=== PATIENT | female | born 1990 | race African-American/Black ===

== ENCOUNTER 2018-03-21 01:00 | Emergency (ER) | payer MEDICAID ==
[~2018-03-21] VITALS: Ht 157.5 cm; Wt 64.0 kg
[~2018-03-21 01:00] MED LIST: ALBUTEROL; PHEN100C4 PO; [UNRECOGNIZED DRUG - OTHER]
[2018-03-21] MEDS ORDERED: KETOROLAC 60MG/2ML VIAL IM ONE (01:45)
[2018-03-21 03:30] VITALS: BP 104/62
== END 2018-03-21 05:39 | disposition home or self-care (01) ==
LOC: ER 01:00
DX: R07.89 Other chest pain (principal); J45.909 Unspecified asthma, uncomplicated; R56.9 Unspecified convulsions; F17.210 Nicotine dependence, cigarettes, uncomplicated; Z88.6 Allergy status to analgesic agent; Z88.1 Allergy status to other antibiotic agents; Z91.013 Allergy to seafood
CPT/HCPCS: 71045; 81025; 93005; 96372; 99284; J1885

== ENCOUNTER 2020-11-08 00:04 | Emergency (ER) | payer MEDICAID ==
[~2020-11-08] VITALS: Ht 157.5 cm; Wt 64.1 kg
[2020-11-08 01:29] VITALS: BP 136/67
[2020-11-08] MEDS ORDERED: KETOROLAC 30MG/ML VIAL IM ONE (01:30)
[2020-11-08] MEDS ORDERED: IBUP-2029 MT (03:13)
== END 2020-11-08 04:00 | disposition home or self-care (01) ==
LOC: ER 00:04
DX: S80.11XA Contusion of right lower leg, initial encounter (principal); G40.909 Epilepsy, unspecified, not intractable, without status epilepticus; J45.909 Unspecified asthma, uncomplicated; Z98.890 Other specified postprocedural states; Z88.6 Allergy status to analgesic agent; Z88.0 Allergy status to penicillin; Z91.013 Allergy to seafood; V04.90XA Pedestrian on foot injured in collision with heavy transport vehicle or bus, unspecified whether traffic or nontraffic accident, initial encounter; Y93.89 Activity, other specified; Y92.488 Other paved roadways as the place of occurrence of the external cause
CPT/HCPCS: 73562; 73610; 73630; 81025; 96372; 99284; J1885

== ENCOUNTER 2021-04-17 12:48 | Emergency (ER) | payer MEDICAID ==
[~2021-04-17] VITALS: Ht 167.6 cm; Wt 63.0 kg
[~2021-04-17 12:48] MED LIST changes: +IBUP-2029 MT
[2021-04-17] MEDS ORDERED: MORPHINE SULFATE 4 MG/ML CPJ (NOT FOR IM USE) IV ONE (16:00)
[2021-04-17 16:12] LABS: BASOPHILS % 0.4 % (0.0-2.0); EOSINOPHILS % 1.4 % (0.0-5.0); HEMATOCRIT. 32.6 % (36.0-48.0); HEMOGLOBIN. 10.6 g/dL (12.0-16.0); LYMPHOCYTES % 28.8 % (20.0-50.0); MEAN CORPUSCULAR HEMOGLOBIN 25.6 pg (28.0-32.0); MEAN CORPUSCULAR VOLUME 78.5 fL (81.0-99.0); MEAN PLATELET VOLUME 9.3 fl (7.4-10.4); MONOCYTES % 7.4 % (2.0-8.0); PLATELET 234 x1000/uL (130-400); RED BLOOD CELL COUNT 4.16 mill/uL (4.2-5.4); RED CELL DISTRIBUTION WIDTH 16.8 % (11.6-14.6)
[2021-04-17 16:21] LABS: CHLORIDE 109 mEq/L (98-107); HCG SCREEN NEGATIVE
[2021-04-17 16:23] LABS: PROTHROMBIN TIME 10.9 sec (9.6-11.0)
[2021-04-17] MEDS ORDERED: KETOROLAC 15MG/ML VIAL IV ONE (16:30)
[2021-04-17 17:14] LABS: CLARITY URINE CLEAR (CLEAR); COLOR URINE YELLOW (YELLOW); KETONES URINE NEGATIVE (NEGATIVE); LEUKOCYTE ESTERASE URINE TRACE (NEGATIVE); NITRITE URINE NEGATIVE (NEGATIVE); OCCULT BLOOD URINE NEGATIVE (NEGATIVE); PROTEIN URINE NEGATIVE (NEGATIVE); SPECIFIC GRAVITY URINE 1.022 (1.005-1.030)
[2021-04-17] MEDS ORDERED: METR-167 MT (18:24)
[2021-04-17] MEDS ORDERED: DOXY-326 MT (18:24)
[2021-04-17] MEDS ORDERED: CEFTRIAXONE SODIUM 500 MG/VIAL IM NR (18:30)
[2021-04-17] MEDS ORDERED: HYDR-4001 MT (18:42)
[2021-04-17] MEDS ORDERED: HYDROCODONE/ACETAMINOPHEN 5/325MG TABLET PO ONE (18:45)
[2021-04-17 19:57] VITALS: BP 112/60
[2021-04-20 08:11] LABS: NEISSERIA GONORRHOEAE NAA Negative (Negative)
== END 2021-04-17 19:59 | disposition home or self-care (01) ==
LOC: ER 12:59
DX: N76.0 Acute vaginitis (principal); N73.9 Female pelvic inflammatory disease, unspecified; J45.909 Unspecified asthma, uncomplicated; Z98.890 Other specified postprocedural states; Z79.899 Other long term (current) drug therapy; Z91.013 Allergy to seafood; Z88.0 Allergy status to penicillin
CPT/HCPCS: 36415; 76830; 76856; 80053; 81003; 81025; 83690; 84484; 84703; 85025; 85610; 87210; 87491; 87591; 96372; 96374; 96375; 99285; J0696; J1885; J2270

== ENCOUNTER 2021-10-03 19:04 | Emergency (ER) | payer MEDICAID ==
[~2021-10-03] VITALS: Ht 160 cm; Wt 61.0 kg
[~2021-10-03 19:04] MED LIST changes: +DOXY-326 MT; +HYDR-4001 MT; +METR-167 MT
[2021-10-03] MEDS ORDERED: KETOROLAC 30MG/ML VIAL IV STA (21:17)
[2021-10-03 21:29] VITALS: BP 127/72
[2021-10-03] MEDS ORDERED: SODIUM CHLORIDE 0.9% 1,000 ML IV ONE (21:30)
[2021-10-03 21:33] LABS: BASOPHILS % 0.5 % (0.0-2.0); EOSINOPHILS % 2.2 % (0.0-5.0); HEMATOCRIT. 33.5 % (36.0-48.0); HEMOGLOBIN. 10.8 g/dL (12.0-16.0); LYMPHOCYTES % 32.9 % (20.0-50.0); MEAN CORPUSCULAR HEMOGLOBIN 25.1 pg (28.0-32.0); MEAN CORPUSCULAR VOLUME 78.2 fL (81.0-99.0); MEAN PLATELET VOLUME 9.2 fl (7.4-10.4); MONOCYTES % 8.3 % (2.0-8.0); NEUTROPHILS % 56.1 % (40.0-76.0); PLATELET 259 x1000/uL (130-400); RED BLOOD CELL COUNT 4.29 mill/uL (4.2-5.4); RED CELL DISTRIBUTION WIDTH 17.3 % (11.6-14.6)
[2021-10-03 21:39] LABS: CHLORIDE 105 mEq/L (98-107)
[2021-10-03 21:58] LABS: HCG SCREEN NEGATIVE
[2021-10-03 22:49] LABS: CLARITY URINE TURBID (CLEAR); COLOR URINE ORANGE (YELLOW); KETONES URINE 2+ (NEGATIVE); LEUKOCYTE ESTERASE URINE 3+ (NEGATIVE); NITRITE URINE POSITIVE (NEGATIVE); OCCULT BLOOD URINE 3+ (NEGATIVE); PH URINE 5.5 (4.5-8.0); PROTEIN URINE 2+ (NEGATIVE); SPECIFIC GRAVITY URINE 1.023 (1.005-1.030)
== END 2021-10-03 22:53 | disposition left against medical advice (07) ==
LOC: ER 19:04
DX: N39.0 Urinary tract infection, site not specified (principal); G40.909 Epilepsy, unspecified, not intractable, without status epilepticus; J45.909 Unspecified asthma, uncomplicated; Z98.890 Other specified postprocedural states; Z91.013 Allergy to seafood; Z88.0 Allergy status to penicillin
CPT/HCPCS: 36415; 74176; 80053; 81003; 81025; 83690; 84703; 85025; 87077; 87086; 87186; 96361; 96374; 99284; J1885; J7030

== ENCOUNTER 2021-12-18 14:10 | Emergency (ER) | payer MEDICAID ==
[~2021-12-18] VITALS: Ht 165.1 cm; Wt 65.0 kg
[2021-12-18 15:33] LABS: BASOPHILS % 0.5 % (0.0-2.0); EOSINOPHILS % 1.8 % (0.0-5.0); HEMATOCRIT. 32.6 % (36.0-48.0); HEMOGLOBIN. 10.5 g/dL (12.0-16.0); LYMPHOCYTES % 30.3 % (20.0-50.0); MEAN CORPUSCULAR HEMOGLOBIN 25.1 pg (28.0-32.0); MEAN PLATELET VOLUME 9.2 fl (7.4-10.4); MONOCYTES % 9.8 % (2.0-8.0); NEUTROPHILS % 57.6 % (40.0-76.0); PLATELET 285 x1000/uL (130-400); RED BLOOD CELL COUNT 4.18 mill/uL (4.2-5.4); RED CELL DISTRIBUTION WIDTH 16.7 % (11.6-14.6)
[2021-12-18 15:41] LABS: CHLORIDE 109 mEq/L (98-107)
[2021-12-18 15:50] LABS: HCG SCREEN NEGATIVE
[2021-12-18 15:57] LABS: B-HCG QUANTITATIVE < 1 mIU/mL (<3)
[2021-12-18] MEDS ORDERED: MORPHINE SULFATE 4 MG/ML CPJ (NOT FOR IM USE) IV ONE (16:45)
[2021-12-18] MEDS ORDERED: DIPHENHYDRAMINE 50MG/ML VIAL IV ONE (17:30)
[2021-12-18 18:23] LABS: CLARITY URINE CLEAR (CLEAR); COLOR URINE YELLOW (YELLOW); KETONES URINE TRACE (NEGATIVE); LEUKOCYTE ESTERASE URINE 2+ (NEGATIVE); NITRITE URINE NEGATIVE (NEGATIVE); OCCULT BLOOD URINE NEGATIVE (NEGATIVE); PH URINE 6.5 (4.5-8.0); PROTEIN URINE NEGATIVE (NEGATIVE); SPECIFIC GRAVITY URINE 1.025 (1.005-1.030)
[2021-12-18] MEDS ORDERED: CEFTRIAXONE 1 G PREMIX 50 ML IV ONE (19:15)
[2021-12-18] MEDS ORDERED: MORPHINE SULFATE 2 MG/ML CPJ (NOT FOR IM USE) IV ONE (19:15)
[2021-12-18] MEDS ORDERED: KETOROLAC 30MG/ML VIAL IV ONE (19:15)
[2021-12-18] MEDS ORDERED: IBUP-2028 MT ×2 (19:16)
[2021-12-18] MEDS ORDERED: TOPUD PO (19:16)
[2021-12-18] MEDS ORDERED: CEFP200T13 MT ×2 (19:16)
[2021-12-18] MEDS ORDERED: NITR-87 MT (19:38)
[2021-12-18 19:42] VITALS: BP 142/86
[2021-12-18] MEDS ORDERED: NITROFURANTOIN 100MG M/M CAPSULE PO ONE (19:45)
== END 2021-12-18 20:16 | disposition home or self-care (01) ==
LOC: ER 15:02
DX: N39.0 Urinary tract infection, site not specified (principal); J45.909 Unspecified asthma, uncomplicated; Z87.891 Personal history of nicotine dependence; F12.10 Cannabis abuse, uncomplicated; Z79.899 Other long term (current) drug therapy; Z88.0 Allergy status to penicillin
CPT/HCPCS: 36415; 74176; 80053; 81003; 84702; 84703; 85025; 86850; 86900; 86901; 96374; 96375; 96376; 99284; J0696; J1200; J1885; J2270

== ENCOUNTER 2022-05-20 03:50 | Emergency (ER) | payer MEDICAID ==
[~2022-05-20] VITALS: Ht 157.5 cm; Wt 64.1 kg
[~2022-05-20 03:50] MED LIST changes: +NITR-87 MT; +TOPUD PO
[2022-05-20] MEDS ORDERED: ONDANSETRON HCL 4MG/2ML INJ IV STA (04:38)
[2022-05-20] MEDS ORDERED: MORPHINE SULFATE 4 MG/ML CPJ (NOT FOR IM USE) IV STA (04:38)
[2022-05-20] MEDS ORDERED: ASPIRIN 81MG TABLET PO ONE (04:45)
[2022-05-20 05:14] LABS: BASOPHILS % 0.6 % (0.0-2.0); EOSINOPHILS % 2.4 % (0.0-5.0); HEMATOCRIT. 32.6 % (36.0-48.0); HEMOGLOBIN. 10.7 g/dL (12.0-16.0); LYMPHOCYTES % 46.3 % (20.0-50.0); MEAN CORPUSCULAR HEMOGLOBIN 25.2 pg (28.0-32.0); MEAN CORPUSCULAR VOLUME 77.1 fL (81.0-99.0); MEAN PLATELET VOLUME 9.1 fl (7.4-10.4); MONOCYTES % 10.4 % (2.0-8.0); NEUTROPHILS % 40.3 % (40.0-76.0); PLATELET 211 x1000/uL (130-400); RED BLOOD CELL COUNT 4.23 mill/uL (4.2-5.4); RED CELL DISTRIBUTION WIDTH 17.7 % (11.6-14.6)
[2022-05-20 05:21] LABS: CHLORIDE 107 mEq/L (98-107)
[2022-05-20 05:48] LABS: HCG SCREEN NEGATIVE
[2022-05-20] MEDS ORDERED: MORPHINE SULFATE 4 MG/ML CPJ (NOT FOR IM USE) IV NR (09:45)
[2022-05-20 10:00] VITALS: BP 110/50
== END 2022-05-20 10:55 | disposition home or self-care (01) ==
LOC: ER 03:50
DX: R07.89 Other chest pain (principal); R56.9 Unspecified convulsions; Z88.3 Allergy status to other anti-infective agents; Z88.6 Allergy status to analgesic agent; Z91.013 Allergy to seafood; Z98.890 Other specified postprocedural states
CPT/HCPCS: 36415; 71045; 80053; 81025; 83880; 84484; 84703; 85025; 85379; 93005; 96374; 99285; J2270; Z7610

== ENCOUNTER 2022-06-10 21:51 | Emergency (ER) | payer MEDICAID | END 2022-06-10 22:14 | disposition left against medical advice (07) | LOC: ER 21:51 | DX: Z53.21 Procedure and treatment not carried out due to patient leaving prior to being seen by health care provider (principal); Z88.1 Allergy status to other antibiotic agents; Z88.3 Allergy status to other anti-infective agents; Z88.6 Allergy status to analgesic agent; Z88.8 Allergy status to other drugs, medicaments and biological substances; Z91.048 Other nonmedicinal substance allergy status ==

== ENCOUNTER 2022-06-20 09:44 | Emergency (ER) | payer MEDICAID ==
[~2022-06-20] VITALS: Ht 167.6 cm; Wt 75.0 kg
[2022-06-20 09:50] VITALS: BP 116/59
== END 2022-06-20 13:12 | disposition left against medical advice (07) ==
LOC: ER 09:44
DX: Z53.21 Procedure and treatment not carried out due to patient leaving prior to being seen by health care provider (principal); I49.9 Cardiac arrhythmia, unspecified
CPT/HCPCS: 93005

== ENCOUNTER 2022-08-13 17:45 | Emergency (ER) | payer MEDICAID ==
[~2022-08-13] VITALS: Ht 160 cm; Wt 59.0 kg
[2022-08-13 17:47] VITALS: BP 117/69
[2022-08-13] MEDS ORDERED: MORPHINE SULFATE 4 MG/ML CPJ (NOT FOR IM USE) IV ONE (19:30)
[2022-08-13 19:46] LABS: CLARITY URINE CLEAR (CLEAR); COLOR URINE YELLOW (YELLOW); KETONES URINE NEGATIVE (NEGATIVE); LEUKOCYTE ESTERASE URINE 1+ (NEGATIVE); NITRITE URINE NEGATIVE (NEGATIVE); OCCULT BLOOD URINE NEGATIVE (NEGATIVE); PH URINE 6.5 (4.5-8.0); PROTEIN URINE NEGATIVE (NEGATIVE); SPECIFIC GRAVITY URINE 1.023 (1.005-1.030)
[2022-08-13 21:41] LABS: BASOPHILS % 0.5 % (0.0-2.0); EOSINOPHILS % 1.8 % (0.0-5.0); HEMATOCRIT. 32.3 % (36.0-48.0); HEMOGLOBIN. 10.4 g/dL (12.0-16.0); LYMPHOCYTES % 31.2 % (20.0-50.0); MEAN CORPUSCULAR HEMOGLOBIN 25.2 pg (28.0-32.0); MEAN CORPUSCULAR VOLUME 78.1 fL (81.0-99.0); MEAN PLATELET VOLUME 9.3 fl (7.4-10.4); MONOCYTES % 9.7 % (2.0-8.0); NEUTROPHILS % 56.8 % (40.0-76.0); PLATELET 220 x1000/uL (130-400); RED BLOOD CELL COUNT 4.13 mill/uL (4.2-5.4); RED CELL DISTRIBUTION WIDTH 18.4 % (11.6-14.6)
[2022-08-13 22:04] LABS: CHLORIDE 109 mEq/L (98-107)
[2022-08-13] MEDS ORDERED: ONDANSETRON HCL 4MG/2ML INJ IV ONE (22:15)
[2022-08-13] MEDS ORDERED: CIPR750T4 MT (22:24)
[2022-08-13] MEDS ORDERED: MUPI15CR11 TP (22:24)
== END 2022-08-13 22:48 | disposition home or self-care (01) ==
LOC: ER 17:45
DX: H61.001 Unspecified perichondritis of right external ear (principal); J45.909 Unspecified asthma, uncomplicated; R00.1 Bradycardia, unspecified; Z98.890 Other specified postprocedural states; F12.10 Cannabis abuse, uncomplicated; Z79.899 Other long term (current) drug therapy; Z88.0 Allergy status to penicillin
CPT/HCPCS: 36415; 74176; 80053; 81003; 81025; 83690; 85025; 93005; 96374; 96375; 99285; J2270; J2405

== ENCOUNTER 2023-02-20 14:10 | Emergency (ER) | payer MEDICAID ==
[~2023-02-20] VITALS: Ht 154.9 cm; Wt 64.0 kg
[~2023-02-20 14:10] MED LIST changes: +CIPR750T4 MT; -DOXY-326 MT; +DOXY-456 MT; +MUPI15CR11 TP
[2023-02-20 14:21] VITALS: TEMP 98.8; O2SAT 100
[2023-02-20 18:45] VITALS: BP 110/60; PULSE 62; RESP 20
[2023-02-20] MEDS ORDERED: IBUPROFEN 400MG TABLET PO ONE (18:45)
[2023-02-20] MEDS ORDERED: FLUORESCEIN SODIUM 1MG/STRIP LEFTEYE ONE (18:45)
[2023-02-20] MEDS ORDERED: TETRACAINE 0.5% OPHTH DROPS 4ML LEFTEYE ONE (18:45)
== END 2023-02-20 20:02 | disposition home or self-care (01) ==
LOC: ER 15:13
DX: H57.12 Ocular pain, left eye (principal); R58 Hemorrhage, not elsewhere classified; J45.909 Unspecified asthma, uncomplicated; R00.1 Bradycardia, unspecified; F12.10 Cannabis abuse, uncomplicated; Z79.899 Other long term (current) drug therapy
CPT/HCPCS: 99281

== ENCOUNTER 2025-05-27 09:58 | Emergency (ER) | payer MEDICAID ==
[~2025-05-27] VITALS: Ht 167.6 cm; Wt 68.0 kg
[~2025-05-27 09:58] MED LIST changes: -DOXY-456 MT; +DOXY-461 MT; +IBUP-1455 MT; -IBUP-2029 MT; +OXYC-100 PO
[2025-05-27 10:01] VITALS: O2SAT 100
[2025-05-27 10:48] LABS: BASOPHILS % 0.5 % (0.0-2.0); EOSINOPHILS % 5.0 % (0.0-5.0); HEMATOCRIT. 29.3 % (36.0-48.0); HEMOGLOBIN. 9.4 g/dL (12.0-16.0); LYMPHOCYTES % 27.1 % (20.0-50.0); MEAN PLATELET VOLUME 8.7 fl (7.4-10.4); MONOCYTES % 9.8 % (2.0-8.0); NEUTROPHILS % 57.6 % (40.0-76.0); PLATELET 293 x1000/uL (130-400); RED BLOOD CELL COUNT 3.73 mill/uL (4.2-5.4); RED CELL DISTRIBUTION WIDTH 18.5 % (11.6-14.6)
[2025-05-27 10:57] LABS: CREATININE 0.8 mg/dL (0.6-1.0); UREA NITROGEN BLOOD < 5 mg/dL (9-23)
[2025-05-27 11:02] LABS: HCG SCREEN POSITIVE
[2025-05-27] MEDS: MORPHINE SULFATE 4 MG/ML INJ (FOR IV/IM USE) IV ONE (11:09)
[2025-05-27] MEDS: ONDANSETRON HCL 4MG/2ML INJ IV ONE (11:09)
[2025-05-27 11:28] LABS: B-HCG QUANTITATIVE 70848 mIU/mL (<6)
[2025-05-27 15:00] VITALS: BP 110/58; PULSE 61; RESP 15; TEMP 36.8; O2SAT 100
== END 2025-05-27 15:00 | disposition home or self-care (01) ==
LOC: ER 09:58
DX: O20.0 Threatened abortion (principal); I51.9 Heart disease, unspecified; J45.909 Unspecified asthma, uncomplicated; Z88.0 Allergy status to penicillin; Z88.1 Allergy status to other antibiotic agents; Z88.6 Allergy status to analgesic agent; Z91.013 Allergy to seafood; Z3A.01 Less than 8 weeks gestation of pregnancy
CPT/HCPCS: 80048; 84703; 84702; 85025; 86850; 86900; 86901; 36415; 76830; 76856; 96374; 96375; 99285; J2405; J2270; Z7610 ×2; A4606

== ENCOUNTER 2025-06-01 19:07 | Emergency (ER) | payer MEDICAID ==
[~2025-06-01] VITALS: Ht 165.1 cm; Wt 64.0 kg
[2025-06-01 19:12] VITALS: O2SAT 99
[2025-06-01] MEDS: ONDANSETRON 4MG ODT PO ONE (20:16)
[2025-06-01] MEDS: ACETAMINOPHEN 325MG TABLET PO ONE (20:16)
[2025-06-01 20:52] LABS: BASOPHILS % 0.7 % (0.0-2.0); EOSINOPHILS % 3.7 % (0.0-5.0); HEMATOCRIT. 28.4 % (36.0-48.0); HEMOGLOBIN. 8.9 g/dL (12.0-16.0); LYMPHOCYTES % 25.8 % (20.0-50.0); MEAN PLATELET VOLUME 8.9 fl (7.4-10.4); MONOCYTES % 8.7 % (2.0-8.0); NEUTROPHILS % 61.1 % (40.0-76.0); PLATELET 258 x1000/uL (130-400); RED BLOOD CELL COUNT 3.62 mill/uL (4.2-5.4); RED CELL DISTRIBUTION WIDTH 17.6 % (11.6-14.6)
[2025-06-01 21:18] LABS: CREATININE 0.7 mg/dL (0.6-1.0); UREA NITROGEN BLOOD < 5 mg/dL (9-23)
[2025-06-01 21:20] LABS: ASPARTATE AMINOTRANSFERASE 10 IU/L (<34); BILIRUBIN DIRECT 0.1 mg/dL (<=3.0); BILIRUBIN TOTAL 0.4 mg/dL (0.1-1.0); PROTEIN TOTAL 6.8 g/dL (6.0-8.3)
[2025-06-01 21:44] LABS: B-HCG QUANTITATIVE 127657 mIU/mL (<6)
[2025-06-01] MEDS: POTASSIUM CHLORIDE 20MEQ/PACKET PO ONE (22:43)
[2025-06-01 22:52] LABS: CLARITY URINE TURBID (CLEAR); COLOR URINE YELLOW (YELLOW); GLUCOSE URINE NEGATIVE (NEGATIVE); KETONES URINE 3+ (NEGATIVE); LEUKOCYTE ESTERASE URINE TRACE (NEGATIVE); NITRITE URINE NEGATIVE (NEGATIVE); OCCULT BLOOD URINE NEGATIVE (NEGATIVE); PH URINE 6.5 (4.5-8.0); PROTEIN URINE 1+ (NEGATIVE); SPECIFIC GRAVITY URINE 1.023 (1.005-1.030); UROBILINOGEN URINE 1.0 E.U./dL (0.2-1.0)
[2025-06-01 23:09] LABS: BACTERIA URINE 3+; SQUAMOUS EPITHELIAL CELL URINE 3+ /lpf (RARE/1+)
[2025-06-01 23:10] LABS: CALCIUM OXALATE CRYSTALS URINE 1+ /lpf; RBC URINE 0-2 /hpf (0-2); WBC URINE 0-2 /hpf (0-2)
[2025-06-01] MEDS ORDERED: NITR-87 MT (23:18)
[2025-06-01] MEDS ORDERED: ONDA-239 PO (23:18)
[2025-06-01] MEDS ORDERED: POLY17PO3 MT (23:18)
[2025-06-01 23:35] VITALS: BP 120/64; PULSE 70; RESP 18; TEMP 36.9; O2SAT 99
== END 2025-06-01 23:39 | disposition home or self-care (01) ==
LOC: ER 19:07
DX: O26.891 Other specified pregnancy related conditions, first trimester (principal); O21.9 Vomiting of pregnancy, unspecified; O23.41 Unspecified infection of urinary tract in pregnancy, first trimester; J45.909 Unspecified asthma, uncomplicated; Z88.0 Allergy status to penicillin; Z88.1 Allergy status to other antibiotic agents; Z88.6 Allergy status to analgesic agent; Z91.013 Allergy to seafood; Z3A.01 Less than 8 weeks gestation of pregnancy
CPT/HCPCS: 80076; 80048; 81003; 84702; 83690; 85025; 86850; 86900; 86901; 36415; 76705; 76801; 99284; Q0162; Z7610

== ENCOUNTER 2025-06-30 02:15 | Inpatient (IN) | payer MEDICAID ==
[~2025-06-30] VITALS: Ht 157.5 cm; Wt 66.7 kg
[~2025-06-30 02:15] MED LIST changes: +ONDA-239 PO; +POLY17PO3 MT
[2025-06-30 02:23] VITALS: O2SAT 100
[2025-06-30 02:51] LABS: BASOPHILS % 0.4 % (0.0-2.0); EOSINOPHILS % 3.8 % (0.0-5.0); HEMATOCRIT. 33.4 % (36.0-48.0); HEMOGLOBIN. 10.5 g/dL (12.0-16.0); LYMPHOCYTES % 33.5 % (20.0-50.0); MEAN PLATELET VOLUME 9.0 fl (7.4-10.4); MONOCYTES % 6.9 % (2.0-8.0); NEUTROPHILS % 55.4 % (40.0-76.0); PLATELET 220 x1000/uL (130-400); RED BLOOD CELL COUNT 4.10 mill/uL (4.2-5.4); RED CELL DISTRIBUTION WIDTH 18.6 % (11.6-14.6)
[2025-06-30 03:01] LABS: CREATININE 0.8 mg/dL (0.6-1.0); UREA NITROGEN BLOOD 6 mg/dL (9-23)
[2025-06-30 03:42] LABS: HCG SCREEN POSITIVE
[2025-06-30] MEDS: IOHEXOL-350 100 ML BOTTLE ONE (05:49)
[2025-06-30] MEDS: TRAMADOL 50MG TABLET PO ONE (06:48)
[2025-06-30 07:56] VITALS: BP 155/83; PULSE 48; RESP 13; O2SAT 99
[2025-06-30 11:08] VITALS: BP 155/83; PULSE 57; RESP 15; TEMP 36.696
[2025-06-30] MEDS ORDERED: NALOXONE HCL 0.4MG/ML VIAL IV PRN (11:30)
[2025-06-30 12:00] VITALS: BP 142/62; PULSE 48; RESP 13; TEMP 37.1; O2SAT 100
[2025-06-30] MEDS: ENOXAPARIN 80MG/0.8ML SYR SUBCUT SCH ×2 (14:49→21:00)
[2025-06-30] MEDS: TRAMADOL 50MG TABLET PO PRN (15:04)
[2025-06-30] MEDS ORDERED: ONDA4TAB50 PO (16:27)
[2025-06-30] MEDS ORDERED: METR-167 PO (16:27)
[2025-06-30] MEDS ORDERED: IBUP-2030 PO (16:27)
[2025-06-30] MEDS ORDERED: ENOX40DI8 SUBCUT (16:27)
[2025-06-30 16:30] VITALS: BP 146/86; PULSE 56; RESP 17; TEMP 36.8; O2SAT 100
[2025-06-30 16:39] LABS: INR 1.0
[2025-06-30 21:40] VITALS: BP 124/77; PULSE 61; RESP 18; TEMP 36.5; O2SAT 100
[2025-07-01] VITALS: BP 119/71; PULSE 59; RESP 18; TEMP 36.6; O2SAT 99
[2025-07-01 04:00] VITALS: BP 134/74; PULSE 51; RESP 17; TEMP 36.1; O2SAT 99
[2025-07-01 08:00] VITALS: BP 130/44; PULSE 20; RESP 18; TEMP 36.6; O2SAT 99
[2025-07-01 12:00] VITALS: BP 144/49; PULSE 18; RESP 18; TEMP 36.6; O2SAT 99
[2025-07-01 16:00] VITALS: BP 128/71; PULSE 18; RESP 18; TEMP 36.7; O2SAT 99
[2025-07-01] MEDS: ONDANSETRON HCL 4MG/2ML INJ IV PRN (21:21)
[2025-07-02] VITALS: BP 124/37; PULSE 51; RESP 18; TEMP 36.3; O2SAT 99
[2025-07-02 04:00] VITALS: BP 105/54; PULSE 48; RESP 18; TEMP 35.7; O2SAT 99
[2025-07-02 08:00] VITALS: BP 110/53; PULSE 59; RESP 18; TEMP 35.7; O2SAT 96
[2025-07-02 12:28] VITALS: BP 129/64; PULSE 62; RESP 16; TEMP 36.6; O2SAT 100
[2025-07-02 15:39] VITALS: BP 128/78; PULSE 68; RESP 18; TEMP 36.6; O2SAT 100
[2025-07-02 20:00] VITALS: BP 125/78; PULSE 60; RESP 19; TEMP 36.4; O2SAT 100
[2025-07-02] MEDS ORDERED: DEXTROSE 50% WATER 50ML SYRINGE IV PRN (22:30)
[2025-07-03] VITALS: BP 112/58; PULSE 87; RESP 19; TEMP 36.3; O2SAT 100
[2025-07-03 02:10] LABS: CLARITY URINE CLEAR (CLEAR); COLOR URINE YELLOW (YELLOW); GLUCOSE URINE NEGATIVE (NEGATIVE); KETONES URINE TRACE (NEGATIVE); LEUKOCYTE ESTERASE URINE NEGATIVE (NEGATIVE); NITRITE URINE NEGATIVE (NEGATIVE); OCCULT BLOOD URINE 1+ (NEGATIVE); PH URINE 7.0 (4.5-8.0); PROTEIN URINE TRACE (NEGATIVE); SPECIFIC GRAVITY URINE 1.016 (1.005-1.030); UROBILINOGEN URINE 1.0 E.U./dL (0.2-1.0)
[2025-07-03 04:00] VITALS: BP 125/71; PULSE 52; RESP 18; TEMP 37.1; O2SAT 99
[2025-07-03] MEDS: BLOOD SUGAR DIAGNOSTIC STRIP TEST SCH (07:42)
[2025-07-03] MEDS: INSULIN LISPRO 100 UNITS/ML SUBCUT SCH (07:42)
[2025-07-03 07:43] LABS: RBC URINE 0-2 /hpf (0-2); SQUAMOUS EPITHELIAL CELL URINE 1+ /lpf (RARE/1+); WBC URINE 0-2 /hpf (0-2)
[2025-07-03 07:44] LABS: BACTERIA URINE 1+
[2025-07-03 08:00] VITALS: BP 110/67; PULSE 67; RESP 18; TEMP 36.6; O2SAT 100
[2025-07-03 11:02] VITALS: BP 110/67; PULSE 71; RESP 18; TEMP 97.8
== END 2025-07-03 11:47 | disposition home or self-care (01) | DRG 564 ==
LOC: ER 02:15 → 5EST 06:06 → EDBEDREQ 06:13 → EDBEDREQTM 06:13 → ENRESERV 07:03 → 6WST 21:50
PROVIDERS: ADMIT Internal Medicine; ATTEND Internal Medicine
DX: O03.4 Incomplete spontaneous abortion without complication (principal); D64.9 Anemia, unspecified; R10.30 Lower abdominal pain, unspecified; R07.89 Other chest pain; Z87.59 Personal history of other complications of pregnancy, childbirth and the puerperium; Z88.8 Allergy status to other drugs, medicaments and biological substances; Z88.1 Allergy status to other antibiotic agents; Z98.891 History of uterine scar from previous surgery; Z86.711 Personal history of pulmonary embolism; Z88.6 Allergy status to analgesic agent
CPT/HCPCS: 36415; 71045; 71275; 76830; 76856; 80048; 81003; 82962; 84703; 85025; 99285; A4606; A4615; J1650; J2405; Q9967